=== PATIENT | female | born 1945 | race Caucasian/White ===

== ENCOUNTER 2017-12-02 11:12 | Outpatient (CLI) | payer MEDICARE, OTHER ==
--- NOTE | 2017-12-08 11:57 | Mammography Report ---
BILATERAL SCREENING MAMMOGRAM: 12/02/2017 COMPARISON: Mammogram 01/23/2013. INDICATION: Screening. TECHNIQUE: Routine bilateral CC and MLO projections were obtained of the breasts. FINDINGS: The breast parenchyma is extremely dense, which may limit the sensitivity of mammography. No dominant mass, architectural distortion, or concerning cluster of microcalcifications are seen. IMPRESSION: 1. BIRADS CATEGORY 1 - NEGATIVE. 2. RECOMMEND ANNUAL SCREENING MAMMOGRAM. STANDARD QUALIFYING STATEMENTS: 1. This examination was reviewed with the aid of Computer-Aided Detection (CAD) . 2. A negative or benign imaging report should not delay biopsy if clinically suspicious findings are present. Consider surgical consultation if warranted. More than 5 % of cancers are not identified by imaging. 3. Dense breasts may obscure an underlying neoplasm. TD: 12/08/2017 11:57 MOOSE
== END 2017-12-02 11:13 | disposition home or self-care (01) ==
LOC: DI.N 11:12
PROVIDERS: ATTEND Physician Assistant
DX: Z12.31 Encounter for screening mammogram for malignant neoplasm of breast (principal)
CPT/HCPCS: 77067